=== PATIENT | male | born 1990 | race African-American/Black ===

== ENCOUNTER 2017-09-29 15:14 | Emergency (ER) | payer OTHER ==
[~2017-09-29] VITALS: Ht 180.3 cm; Wt 71.7 kg
--- NOTE | ~2017-09-29 | EKG ---
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 : 1990 Requested By: Pau Reed Order Number: [id number] MD: Gonzalo Matthews Measurements Intervals [place] Rate: 60 P: 66 [place]: 166 QRS: 79 QRSD: 91 T: 38 QT: 379 QTc: 379 Interpretive Statements Sinus rhythm ST elev, probable normal early repol pattern Compared to ECG 10/26/2014 10:53:34 No significant change was found Electronically Signed On 09-29-2017 17:12:02 CDT by Gonzalo Matthews [email or web address] <ELECTRONICALLY SIGNED> By: Gonzalo Matthews MD, [facility] 09/29/17 1712 1520 1520 Gonzalo Matthews MD, [facility] /EPI
[~2017-09-29 15:14] MED LIST: APAP500 PO; IBUPROFEN 600600 M1 PO; KEFLEX500 MG PO; NAPROSYN500 MG PO; NOHOMEMEDICATIONS; NORFLEX100 MG PO; PHENERGAN 25 MG25 M1 PO; ULTRAM 50MG TAB50 MG PO; ZPAK PO
[2017-09-29 15:38] LABS: ABSOLUTE NEUTROPHILS 3.9 thou/uL (1.4-8.2); BASOPHILS 0.4 % (0.0-2.0); EOSINOPHILS 0.2 % (0.0-3.0); HEMATOCRIT 35.7 % (42.0-52.0); HEMOGLOBIN 12.2 gm/dL (14.0-18.0); LYMPHOCYTES 31.4 % (24.0-44.0); MCH 32.4 pg (26.0-34.0); MCHC 34.3 g/dL (28.0-37.0); MCV 94.5 fL (80.0-100.0); MONOCYTES 7.1 % (1.0-8.0); PLATELET COUNT 157 thou/uL (150-400); POLYS 60.9 % (36.0-66.0); RBC 3.78 mil/uL (4.50-6.00); RDW 12.9 % (10.5-14.5); WBC 6.4 thou/uL (4.0-11.0)
[2017-09-29 15:46] LABS: ANION GAP 6 mmol/L (7-16); BUN 7 mg/dL (7-18); CALCIUM 9.3 mg/dL (8.5-10.1); CHLORIDE 104 mmol/L (98-107); CO2 29 mmol/L (21-32); GLUCOSE 88 mg/dL (74-106); POTASSIUM 3.7 mmol/L (3.5-5.1); SODIUM 139 mmol/L (136-145)
[2017-09-29 15:55] LABS: TROPONIN-I <0.06 ng/mL (<0.06)
[2017-09-29] MEDS ORDERED: IBUPROFEN 600600 M1 PO (16:12)
[2017-09-29] MEDS ORDERED: NORCO 5-325 TA1 EACH PO (16:12)
[2017-09-29 16:40] VITALS: BP 115/65
== END 2017-09-29 16:42 | disposition home or self-care (01) ==
LOC: ER 15:14
PROVIDERS: Emergency Medicine
DX: R09.1 Pleurisy (principal); R50.9 Fever, unspecified

== ENCOUNTER 2018-09-29 17:49 | Inpatient (IN) | payer OTHER ==
[~2018-09-29] VITALS: Ht 182.9 cm; Wt 69.4 kg
[~2018-09-29 17:49] MED LIST changes: +NORCO 5-325 TA1 EACH PO
[2018-09-29 17:51] VITALS: BP 95/62
[2018-09-29 18:20] LABS: HEMATOCRIT 42.5 % (42.0-52.0); HEMOGLOBIN 14.5 gm/dL (14.0-18.0); MCH 31.9 pg (26.0-34.0); MCHC 34.2 g/dL (28.0-37.0); MCV 93.3 fL (80.0-100.0); PLATELET COUNT 187 thou/uL (150-400); RBC 4.56 mil/uL (4.50-6.00); RDW 12.8 % (10.5-14.5)
[2018-09-29 18:24] LABS: ANION GAP 18 mmol/L (7-16); BUN 31 mg/dL (7-18); CALCIUM 10.9 mg/dL (8.5-10.1); CHLORIDE 94 mmol/L (98-107); CO2 20 mmol/L (21-32); CREATININE 2.2 mg/dL (0.7-1.3); GLUCOSE 91 mg/dL (74-106); SODIUM 132 mmol/L (136-145)
[2018-09-29 18:38] LABS: TROPONIN-I <0.06 ng/mL (<0.06)
[2018-09-29 18:43] VITALS: BP 105/64
[2018-09-29 19:33] LABS: ABSOLUTE NEUTROPHILS 14.2 thou/uL (1.4-8.2)
[2018-09-29 19:34] LABS: ANISOCYTOSIS 2+; LARGE PLATELETS RARE
[2018-09-29 20:03] LABS: URINE BILIRUBIN NEGATIVE (Negative); URINE BLOOD TRACE (Negative); URINE CLARITY CLEAR; URINE COLOR YELLOW; URINE GLUCOSE-RANDOM* NEGATIVE (Negative); URINE KETONES 1+ (Negative); URINE LEUKOCYTES-REFLEX NEGATIVE (Negative); URINE NITRITE-REFLEX NEGATIVE (Negative); URINE PROTEIN (DIPSTICK) TRACE (Negative); URINE UROBILINOGEN 0.2 E.U./dl (0.2-1.0)
[2018-09-29 21:33] VITALS: BP 96/50
[2018-09-29 22:40] VITALS: BP 75/46; BP 96/52
--- NOTE | 2018-09-30 04:32 | NUR ---
PT ARRIVED FROM ED 2239. VSS. ORDERS ACKNOWLEDGED. ADMISSION COMPLETED. ADMISSION EDUCATION PROVIDED. PT UP AD GIO. WILL CONTINUE POC UNTIO EOS.
[2018-09-30 05:03] VITALS: BP 109/69
[2018-09-30 05:45] LABS: HEMATOCRIT 37.6 % (42.0-52.0); HEMOGLOBIN 12.7 gm/dL (14.0-18.0); MCH 31.9 pg (26.0-34.0); MCHC 33.6 g/dL (28.0-37.0); MCV 94.9 fL (80.0-100.0); RBC 3.97 mil/uL (4.50-6.00); RDW 12.8 % (10.5-14.5); WBC 7.6 thou/uL (4.0-11.0)
[2018-09-30 06:10] LABS: MAGNESIUM 1.8 mg/dL (1.8-2.4)
[2018-09-30 06:18] LABS: CALCIUM 8.5 mg/dL (8.5-10.1)
[2018-09-30 08:00] VITALS: BP 101/55
[2018-09-30 10:43] VITALS: BP 109/69
--- NOTE | 2018-09-30 11:02 | NUR ---
Met with patient and s/o at bedside. patient admitted with heat exhaustion plan dc today. 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 Gave patient [facility] information. He has script for return to work purposes. DC home no medications.
--- NOTE | 2018-09-30 11:18 | NUR ---
Assumed pt care at 7am.Pt in bed resting without c/o.Assessment completed.vss. But low pulse noted.Dr Robledo here,dc order noted.Pt wanted to dc home as as possible to prevent driving in the heat.Dc summary compiled and reviewed with pt.Work release and dc summary copy given.Saline lock dc'd.At 1115,pt dc home with chucky.
--- NOTE | 2018-10-03 17:51 | EKG ---
[address] [address] [facility] [place] [address] ELECTROCARDIOGRAM REPORT Name: NITO WYMANTORRIE NDIAYE Room #: [facility] .R.#: [id number] ������������������ Admission: 09/29/18 ������������������ Attend Phys: Arturo Luna MD Discharge: 09/30/18 ������������������ Date of : [birth year] Report #: [id number] ����������������������������������������������������������������� [id number] THIS REPORT FOR: //name// [facility] ED Test Date: 2018-09-29 Test Time: 18:31:12 Pat Name: MARION WYMAN Department: Room: [facility] 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: M 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 : 1990 Requested By: Marcellus Munguia Order Number: [id number] MD: Gonzalo Matthews Measurements Intervals [place] Rate: 79 P: 88 [place]: 172 QRS: 83 QRSD: 89 T: 58 QT: 337 QTc: 387 Interpretive Statements Sinus rhythm ST elev, probable normal early repol pattern Compared to ECG 09/29/2017 15:20:42 No significant changes Electronically Signed On 10-03-2018 17:51:10 CDT by Gonzalo Matthews [email or web address] ��������������������������������������������� <ELECTRONICALLY SIGNED> ���������������������������������������� By: Gonzalo Matthews MD, [facility] ��������������������������������������������� 10/03/18 0680 183 30 Gonzalo Matthews MD, [facility] /EPI
== END 2018-09-30 11:18 | disposition home or self-care (01) | DRG 923 ==
LOC: ER 17:49 → EROBS 21:24 → 4E 22:40
PROVIDERS: Emergency Medicine; Nurse Practitioner Family; ADMIT Hospitalist
DX: T67.5XXA Heat exhaustion, unspecified, initial encounter (principal); N17.9 Acute kidney failure, unspecified; E86.0 Dehydration; Z79.1 Long term (current) use of non-steroidal anti-inflammatories (NSAID); X58.XXXA Exposure to other specified factors, initial encounter; Y93.89 Activity, other specified; Y92.89 Other specified places as the place of occurrence of the external cause
CPT/HCPCS: 10084

== ENCOUNTER 2019-02-25 19:19 | Emergency (ER) | payer OTHER ==
[~2019-02-25] VITALS: Ht 182.9 cm; Wt 73.9 kg
[2019-02-25] MEDS ORDERED: KEFLEX500 M1 PO (20:11)
[2019-02-25 21:20] VITALS: BP 119/72
== END 2019-02-25 21:20 | disposition home or self-care (01) ==
LOC: ER 19:19
DX: S61.411A Laceration without foreign body of right hand, initial encounter (principal); W26.8XXA Contact with other sharp object(s), not elsewhere classified, initial encounter; Y93.89 Activity, other specified; Y92.89 Other specified places as the place of occurrence of the external cause; Y99.0 Civilian activity done for income or pay

== ENCOUNTER 2020-03-28 09:40 | Emergency (ER) | payer OTHER ==
[~2020-03-28] VITALS: Ht 182.9 cm; Wt 74.8 kg
[~2020-03-28 09:40] MED LIST changes: +KEFLEX500 M1 PO
[2020-03-28] MEDS ORDERED: FLEXERIL PO (10:56)
[2020-03-28 11:04] VITALS: BP 113/78
== END 2020-03-28 11:03 | disposition home or self-care (01) ==
LOC: ER 09:40
DX: S29.011A Strain of muscle and tendon of front wall of thorax, initial encounter (principal); F12.90 Cannabis use, unspecified, uncomplicated; X50.1XXA Overexertion from prolonged static or awkward postures, initial encounter; Y93.89 Activity, other specified; Y92.89 Other specified places as the place of occurrence of the external cause; Y99.9 Unspecified external cause status